=== PATIENT | female | born 1940 | race Caucasian/White ===

== ENCOUNTER 2018-03-10 12:45 | Inpatient (IN) | payer OTHER ==
[~2018-03-10] VITALS: Ht 152.4 cm; Wt 63.5 kg
[~2018-03-10 12:45] MED LIST: HYZAAR 100-251 EACH PO; METOPROLOL SUCC25 MG PO
== END 2018-03-20 14:35 | disposition home or self-care (01) | DRG 331 ==
LOC: SURG 03-15 07:36 → SURH 03-15 07:36
PROVIDERS: Surgery
PROC: 30233N1 Transfusion of Nonautologous Red Blood Cells into Peripheral Vein, Percutaneous Approach (ICD-10-PCS; 2018-03-15)
PROC: 07TC4ZZ Resection of Pelvis Lymphatic, Percutaneous Endoscopic Approach (ICD-10-PCS; 2018-03-17)
PROC: 0DTF4ZZ Resection of Right Large Intestine, Percutaneous Endoscopic Approach (ICD-10-PCS; principal; 2018-03-17 11:00)
DX: C18.2 Malignant neoplasm of ascending colon (principal); R59.0 Localized enlarged lymph nodes; D50.0 Iron deficiency anemia secondary to blood loss (chronic); I11.9 Hypertensive heart disease without heart failure